=== PATIENT | female | born 1990 | race Two or more races ===

== ENCOUNTER 2017-03-13 15:29 | Emergency (ER) | payer SELFPAY ==
[~2017-03-13] VITALS: Ht 144.8 cm; Wt 68.0 kg
[2017-03-13 16:53] VITALS: BP 120/78
[2017-03-13] MEDS ORDERED: BACITRACIN TOP OINT 1 UD PKG TOP ONE (17:15)
[2017-03-13] MEDS ORDERED: TETANUS-DIPTH-ACEL PERTUSSIS 0.5ML SYRG IM ONE (17:15)
== END 2017-03-13 17:24 | disposition home or self-care (01) ==
LOC: ER 15:40
DX: S61.031A Puncture wound without foreign body of right thumb without damage to nail, initial encounter (principal); S61.236A Puncture wound without foreign body of right little finger without damage to nail, initial encounter; W54.0XXA Bitten by dog, initial encounter; Y93.89 Activity, other specified; Y99.8 Other external cause status; Y92.89 Other specified places as the place of occurrence of the external cause; Z23 Encounter for immunization
CPT/HCPCS: 90471; 90715

== ENCOUNTER 2021-07-13 19:31 | Emergency (ER) | payer BC, MEDICAID ==
[~2021-07-13] VITALS: Ht 149.9 cm; Wt 61.2 kg
[2021-07-13 20:56] LABS: Basophils # (auto) 0.1 10 ^3/uL (0-0.2); Basophils % (auto) 0.4 % (0.0-2.0); Eosinophils # (auto) 0 10 ^3/uL (0-0.8); Hematocrit 40.2 % (36.0-46.0); Hemoglobin 13.4 g/dL (12.2-16.2); Lymphocytes # (auto) 1.9 10 ^3/uL (0.4-5.4); Lymphocytes % (auto) 9.1 % (10.0-50.0); Mean Corpuscular Hemoglobin 30.5 pg (28.0-32.0); Mean Corpuscular Hgb Conc. 33.4 g/dL (32.0-36.0); Mean Corpuscular Volume 91.3 fL (80.0-100.0); Monocytes # (auto) 1.2 10 ^3/uL (0-1.3); Monocytes % (auto) 5.9 % (0.0-12.0); Neutrophils # (auto) 17.5 10 ^3/uL (1.6-8.6); Neutrophils % (auto) 84.6 % (37.0-80.0); Red Cell Distribution Width 13.6 % (11.8-14.3); White Blood Cell 20.7 10^3/uL (4.4-10.8)
[2021-07-13 21:18] LABS: Albumin 3.8 g/dL (3.4-5.0); BUN/Creatinine Ratio 10.5; Calcium 8.6 mg/dL (8.5-10.1); Potassium 4.1 mmol/L (3.5-5.1)
[2021-07-13 21:21] LABS: Bilirubin, Total 0.3 mg/dL (0.2-1.0); Total Protein 8.7 g/dL (6.4-8.2)
[2021-07-13] MEDS ORDERED: cefTRIAXone 1GM/50ML D5W 50 ML IV ONE (21:45)
[2021-07-13] MEDS ORDERED: SODIUM CHLORIDE 0.9% 1,000 ML IV ONE (21:45)
[2021-07-13] MEDS ORDERED: CLINDAMYCIN 900MG IV 50 ML IV ONE (21:45)
[2021-07-14 01:55] VITALS: BP 135/70
== END 2021-07-14 02:51 | disposition home or self-care (01) ==
LOC: ER 19:31
DX: L02.416 Cutaneous abscess of left lower limb (principal)
CPT/HCPCS: 36415; 80053; 83605; 85025; 87040; 96365; 96366; 96368; 99284; J0696; J3490; J7030

== ENCOUNTER 2022-10-06 16:47 | Emergency (ER) | payer MEDICAID ==
[~2022-10-06] VITALS: Ht 149.9 cm; Wt 65.6 kg
[2022-10-06] MEDS ORDERED: AMOX500T86 PO (20:54)
[2022-10-06] MEDS ORDERED: PRED20TA2 PO (20:54)
[2022-10-06] MEDS ORDERED: DexAMETHasone SOD PHOS 4 MG/1ML SDV INJ IM ONE (21:00)
[2022-10-06] MEDS ORDERED: AMOX500C2 PO (22:48)
[2022-10-06 23:18] VITALS: BP 139/74
== END 2022-10-06 23:45 | disposition home or self-care (01) ==
LOC: ER 16:47
DX: J03.90 Acute tonsillitis, unspecified (principal); Z79.2 Long term (current) use of antibiotics; Z79.899 Other long term (current) drug therapy; Z20.822 Contact with and (suspected) exposure to COVID-19
CPT/HCPCS: 36415; 87426; 87804; 87880; 96372; 99283; J1100